=== PATIENT | female | born 1975 | race American Indian/Alaskan Native ===

== ENCOUNTER 2017-09-03 23:27 | Emergency (ER) | payer OTHER, MEDICAID ==
[2017-09-03 23:47] VITALS: BP 122/84
[2017-09-04 00:11] LABS: BUN/Creatinine Ratio 16; Blood Urea Nitrogen 11 mg/dL (7-17); Calcium 8.2 mg/dL (8.4-10.2); Hemolysis Index 2
[2017-09-04 00:13] LABS: Basophils % (Auto) 0.3 % (0.0-1.8); Eosinophils # (Auto) 0.1 K/mm3 (0.0-0.4); Eosinophils % (Auto) 1.4 % (0.0-4.3); Hematocrit 36.4 % (30.3-42.9); Hemoglobin 12.2 gm/dl (10.1-14.3); Lymphocytes % (Auto) 50.8 % (13.4-35.0); Mean Corpuscular HGB Conc 34 % (30-34); Mean Corpuscular Hemoglobin 32 pg (28-32); Mean Corpuscular Volume 95 fl (79-97); Monocytes # (Auto) 0.5 K/mm3 (0.0-0.8); Monocytes % (Auto) 6.8 % (0.0-7.3); Platelet Count 253 K/mm3 (140-440); Red Blood Count 3.84 M/mm3 (3.65-5.03); Red Cell Distribution Width 14.1 % (13.2-15.2)
[2017-09-04] MEDS ORDERED: MOTRIN PO ONE (00:52)
--- NOTE | 2017-09-04 00:55 | Emergency Department Report ---
HPI - General Chief Complaint: Burn/Smoke Inhalation Time Seen by Provider: 09/04/17 00:50 - HPI HPI: 42-year-old -[place] female with a past medical history of chronic back pain comes to the emergency room reporting she was possible carbon monoxide exposure. Patient minutes to a headache. She reports that another family member is positive for CO2 poisoning in the main ER. Patient reports that her headache is throbbing located on the temples. She has not had any pain medication at this time. She denies any chest pain shortness of breathing and no nausea no vomiting abdominal pain altered mental status able to ambulate without difficulty no sore throat. Patient has no known drug allergies. Currently takes Aleve for her chronic back pain which her last dose was yesterday. ED Past Medical Hx - Past Medical History Previous Medical History?: Yes Additional medical history: anemia; endometriosis - Surgical History Additional Surgical History: , Tubal Ligation - Social History Smoking Status: Never Smoker Substance Use Type: None - Medications Home Medications: Home Medications Medication Instructions Recorded Confirmed Last Taken Type Cyclobenzaprine [Flexeril 10mg] 10 mg PO TID PRN #14 tablet 12/28/13 Unknown Rx traMADol [Ultram] 50 mg PO Q4HR PRN #14 tablet 12/28/13 Unknown Rx Acetaminophen/Codeine 1 tab PO Q6H PRN #10 tab 05/27/14 Unknown Rx [Acetaminophen-Codeine #3 TAB] Cyclobenzaprine [Flexeril 10mg] 10 mg PO TID PRN #14 tablet 05/27/14 Unknown Rx Prednisone [Prednisone 10 mg 10 mg PO .TAPER #1 tab.ds.pk 05/27/14 Unknown Rx (6-Day Pack, 21 Tabs)] Ibuprofen [Motrin 800 MG tab] 800 mg PO Q8H PRN #15 tablet 09/04/17 Unknown Rx ED Review of Systems ROS: Stated complaint: SMOKE INHALATION Other details as noted in HPI Constitutional: denies: chills, fever Eyes: denies: eye pain, eye discharge, vision change ENT: denies: ear pain, throat pain Respiratory: denies: cough, shortness of breath, wheezing Cardiovascular: denies: chest pain, palpitations Endocrine: no symptoms reported Gastrointestinal: denies: abdominal pain, nausea, diarrhea Genitourinary: denies: urgency, dysuria, discharge Musculoskeletal: denies: back pain, joint swelling, arthralgia Skin: denies: rash, lesions Neurological: headache Psychiatric: denies: anxiety, depression Hematological/Lymphatic: denies: easy bleeding, easy bruising Physical Exam - Physical Exam Vital Signs: Vital Signs 09/03/17 09/03/17 23:27 23:39 Temperature 98.4 F 98.4 F Pulse Rate 74 71 Respiratory 18 18 Rate Blood Pressure 122/84 122/84 O2 Sat by Pulse 100 100 Oximetry Physical Exam: GENERAL: Alert and oriented x3, no apparent distress, Normal Gait, atraumatic. HEAD: Head is normocephalic and a-traumatic. EYES: Extra ocular muscles are intact. Pupils are equal, round, and reactive to light and accommodation. MOUTH:Mouth is well hydrated and without lesions. Mucous membranes are moist. Posterior pharynx clear, no exudate or lesions. Patent airways. NECK: Supple. Non edematous, . LUNGS: Symetrical with respiration, No wheezing, no rales or crackles, CTAB. HEART: S1, S2 present, regular rate and rhythm without murmur, no rubs, no gallops. ABDOMEN: No organomegaly was noted,Positive bowel sounds, soft, and non- distended. . Nontender to palpation on all Quadrants, NO CVA tenderness. EXTREMITIES/MUSCULOSKELETAL: No cyanosis, clubbing, rash, lesions or edema. Full ROM bilaterally. NEUROLOGIC: No focal Deficit, Cranial nerves II through XII are grossly intact. No loss of sensation, No facial droop, PSYCHIATRIC: Mood is congruent with affect, denies suicidal or homicidal ideations. SKIN: Warm and dry, No lesions, No ulceration or induration present ED Course Vital Signs 09/03/17 09/03/17 23:27 23:39 Temperature 98.4 F 98.4 F Pulse Rate 74 71 Respiratory 18 18 Rate Blood Pressure 122/84 122/84 O2 Sat by Pulse 100 100 Oximetry ED Medical Decision Making - Lab Data Result diagrams: 09/03/17 23:50 09/03/17 23:50 - Medical Decision Making Patient has been evaluated by this provider fast track. I discussed with patient that her carboxyhemoglobin was within normal limits. Discussed the patient I will give her ibuprofen 800 mg for her head. Encouraged her to drink plenty of fluids. Discussed the patient she can follow up with her primary care provider patient verbalized understanding. Critical care attestation.: If time is entered above; I have spent that time in minutes in the direct care of this critically ill patient, excluding procedure time. ED Disposition Clinical Impression: Exposure to carbon monoxide Disposition: DC-01 TO HOME OR SELFCARE Is pt being admited?: No Does the pt Need Aspirin: No Condition: Stable Instructions: Carbon Monoxide Exposure (ED) Additional Instructions: He can take ibuprofen for pain. Please drink plenty of fluids. Follow-up with her primary care provider. Prescriptions: Ibuprofen [Motrin 800 MG tab] 800 mg PO Q8H PRN #15 tablet PRN Reason: Pain Forms: Work/School Release Form(ED)
== END 2017-09-04 00:58 | disposition home or self-care (01) ==
LOC: ED 23:27
DX: Z77.098 Contact with and (suspected) exposure to other hazardous, chiefly nonmedicinal, chemicals (principal); R51 Headache; M54.9 Dorsalgia, unspecified; G89.29 Other chronic pain; Z98.51 Tubal ligation status; Z86.2 Personal history of diseases of the blood and blood-forming organs and certain disorders involving the immune mechanism; Z91.010 Allergy to peanuts
CPT/HCPCS: 36415; 80048; 82375; 85025; 99283

== ENCOUNTER 2018-01-24 13:58 | Emergency (ER) | payer OTHER, MEDICAID ==
[2018-01-24 15:18] VITALS: BP 107/49
[2018-01-24] MEDS ORDERED: TORADOL IM ONE (17:30)
--- NOTE | 2018-01-24 17:36 | Emergency Department Report ---
ED Back Pain/Injury HPI - General Chief Complaint: Back Pain/Injury Stated Complaint: LOWER BACK PAIN Time Seen by Provider: 01/24/18 17:22 Source: patient Limitations: No Limitations - History of Present Illness Initial Comments: This is a 43-year-old female nontoxic, well nourished in appearance, no acute signs of distress presents to the ED with c/o of acute on chronic lower back pain. Patient stated that the past 2 days he was moving and developed this pain. Patient states has history of sciatica nerve pain which is similar symptoms as today. Patient states that pain radiates through to his right lower extremity. Patient denies any trauma. Denies any bladder or bowel instability. Patient denies any urinary symptoms. Denies any fever, chills, nausea, vomiting, headache, stiff neck, chest pain or shortness of breath. Patient denies any numbness or tingling. Denies any allergies. PMH of sciatica. MD Complaint: back pain -: days(s) (2) Similar Symptoms Previously: Yes Place: work Radiation: right leg Severity: mild Severity scale (0 -10): 8 Consistency: intermittent Improves With: immobilization, supine, sitting upright Worsens With: movement, walking Context: while lifting, turning/twisting Associated Symptoms: denies other symptoms. denies: confusion, weakness, chest pain, numbness, difficulty walking, cough, difficulty urinating, diaphoresis, incontinence, fever/chills, constipation, headaches, abdominal pain, loss of appetite, malaise, nausea/vomiting, rash, seizure, shortness of breath, syncope - Related Data Previous Rx's Medication Instructions Recorded Last Taken Type Cyclobenzaprine [Flexeril 10mg] 10 mg PO TID PRN #14 tablet 12/28/13 Unknown Rx traMADol [Ultram] 50 mg PO Q4HR PRN #14 tablet 12/28/13 Unknown Rx Acetaminophen/Codeine 1 tab PO Q6H PRN #10 tab 05/27/14 Unknown Rx [Acetaminophen-Codeine #3 TAB] Cyclobenzaprine [Flexeril 10mg] 10 mg PO TID PRN #14 tablet 05/27/14 Unknown Rx Prednisone [Prednisone 10 mg 10 mg PO .TAPER #1 tab.ds.pk 05/27/14 Unknown Rx (6-Day Pack, 21 Tabs)] Ibuprofen [Motrin 800 MG tab] 800 mg PO Q8H PRN #15 tablet 09/04/17 Unknown Rx Cyclobenzaprine [Flexeril] 10 mg PO QHS PRN #10 tablet 01/24/18 Unknown Rx Ibuprofen [Motrin] 600 mg PO Q8H PRN #30 tablet 01/24/18 Unknown Rx Allergies Allergy/AdvReac Type Severity Reaction Status Date / Time peanut Allergy Unknown Verified 12/28/13 08:18 ED Review of Systems ROS: Stated complaint: LOWER BACK PAIN Other details as noted in HPI Constitutional: denies: chills, fever Eyes: denies: eye pain, eye discharge, vision change ENT: denies: ear pain, throat pain Respiratory: denies: cough, shortness of breath, wheezing Cardiovascular: denies: chest pain, palpitations Endocrine: no symptoms reported Gastrointestinal: denies: abdominal pain, nausea, diarrhea Genitourinary: denies: urgency, dysuria, discharge Musculoskeletal: back pain. denies: joint swelling, arthralgia Skin: denies: rash, lesions Neurological: denies: headache, weakness, paresthesias Psychiatric: denies: anxiety, depression Hematological/Lymphatic: denies: easy bleeding, easy bruising ED Past Medical Hx - Past Medical History Previous Medical History?: Yes Additional medical history: anemia; endometriosis, sciatica - Surgical History Past Surgical History?: Yes Additional Surgical History: , Tubal Ligation - Social History Smoking Status: Current Every Day Smoker Substance Use Type: None - Medications Home Medications: Home Medications Medication Instructions Recorded Confirmed Last Taken Type Cyclobenzaprine [Flexeril 10mg] 10 mg PO TID PRN #14 tablet 12/28/13 Unknown Rx traMADol [Ultram] 50 mg PO Q4HR PRN #14 tablet 12/28/13 Unknown Rx Acetaminophen/Codeine 1 tab PO Q6H PRN #10 tab 05/27/14 Unknown Rx [Acetaminophen-Codeine #3 TAB] Cyclobenzaprine [Flexeril 10mg] 10 mg PO TID PRN #14 tablet 05/27/14 Unknown Rx Prednisone [Prednisone 10 mg 10 mg PO .TAPER #1 tab.ds.pk 05/27/14 Unknown Rx (6-Day Pack, 21 Tabs)] Ibuprofen [Motrin 800 MG tab] 800 mg PO Q8H PRN #15 tablet 03/19/18 Unknown Rx Cyclobenzaprine [Flexeril] 10 mg PO QHS PRN #10 tablet 01/24/18 Unknown Rx Ibuprofen [Motrin] 600 mg PO Q8H PRN #30 tablet 01/24/18 Unknown Rx ED Physical Exam - General Limitations: No Limitations General appearance: alert, in no apparent distress - Head Head exam: Present: atraumatic, normocephalic - Eye Eye exam: Present: normal appearance Pupils: Present: normal accommodation - ENT ENT exam: Present: normal exam, mucous membranes moist - Neck Neck exam: Present: normal inspection, full ROM. Absent: tenderness, meningismus, lymphadenopathy - Respiratory Respiratory exam: Present: normal lung sounds bilaterally. Absent: respiratory distress, wheezes, rales, rhonchi, stridor, chest wall tenderness, accessory muscle use, decreased breath sounds, prolonged expiratory - Cardiovascular Cardiovascular Exam: Present: regular rate, normal rhythm, normal heart sounds. Absent: bradycardia, tachycardia, irregular rhythm, systolic murmur, diastolic murmur, rubs, gallop - GI/Abdominal GI/Abdominal exam: Present: soft, normal bowel sounds. Absent: distended, tenderness, guarding, rebound, rigid, diminished bowel sounds - Extremities Exam Extremities exam: Present: normal inspection, full ROM, normal capillary refill. Absent: tenderness - Back Exam Back exam: Present: normal inspection, full ROM, paraspinal tenderness (lumbar paraspinal). Absent: tenderness, CVA tenderness (R), CVA tenderness (L), muscle spasm, vertebral tenderness, rash noted - Expanded Back Exam Expanded Back exam: Absent: saddle anesthesia Back exam: Negative Straight Leg Raising: Left, Right - Neurological Exam Neurological exam: Present: alert, oriented X3, normal gait - Psychiatric Psychiatric exam: Present: normal affect, normal mood - Skin Skin exam: Present: warm, dry, intact, normal color. Absent: rash ED Course Vital Signs 01/24/18 15:14 Temperature 98.1 F Pulse Rate 66 Respiratory 18 Rate Blood Pressure 107/49 O2 Sat by Pulse 100 Oximetry - Reevaluation(s) Reevaluation #1: 01/24/18 17:41 Patient is speaking in full sentences with no signs of distress noted. ED Medical Decision Making - Medical Decision Making This is a 43-year-old female that presents with low back strain. Patient is stable was examined by me. There is no spinal tenderness. There is no cauda equina syndrome during examination. No bladder or bowel instability. Patient received Toradol 30 mg IM in the ED which preceded his symptoms has resolved and subsided. Patient is discharged with muscle relaxant and Motrin. Patient was instructed not to operate any machinery while taking muscle relaxant as they cause her drowsiness. Patient was referred to Follow-up with a primary care doctor in 3-5 days or if symptoms worsen and continue return to emergency room as soon as possible. At time of discharge, the patient does not seem toxic or ill in appearance. No acute signs of distress noted. Patient agrees to discharge treatment plan of care. No further questions noted by the patient. This chart is dictated with using [employer] Dictation Program Critical care attestation.: If time is entered above; I have spent that time in minutes in the direct care of this critically ill patient, excluding procedure time. ED Disposition Clinical Impression: Low back strain Qualifiers: Encounter type: initial encounter Qualified Code(s): S39.012A - Strain of muscle, fascia and tendon of lower back, initial encounter Sciatica Qualifiers: Laterality: right Qualified Code(s): M54.31 - Sciatica, right side Disposition: DC- TO HOME OR SELFCARE Is pt being admited?: No Does the pt Need Aspirin: No Condition: Stable Instructions: Low Back Strain (ED), Sciatica (ED), Cyclobenzaprine (By mouth), Ibuprofen (By mouth) Additional Instructions: Follow-up with your primary care doctor in 3-5 days or if symptoms worsen such as bladder or bowel stability, chest pain, short of breath, numbness or tingling sensation in extremities, headache, dizziness, visual changes, nausea vomiting, or abdominal pain, return back to emergency room as was possible. Take ibuprofen and Flexeril as prescribed. Do not operate heavy machinery while taking Flexeril due to sedation Prescriptions: Cyclobenzaprine [Flexeril] 10 mg PO QHS PRN #10 tablet PRN Reason: Muscle Spasm Ibuprofen [Motrin] 600 mg PO Q8H PRN #30 tablet PRN Reason: Pain Referrals: PRIMARY CAREMD [Primary Care Provider] - 3-5 Days SURESH WHALEY MD [Staff Physician] - 3-5 Days [facility] [Outside] - 3-5 Days [facility] [Outside] - 3-5 Days Forms: Work/School Release Form(ED)
== END 2018-01-24 17:55 | disposition home or self-care (01) ==
LOC: ED 13:58
DX: S39.012A Strain of muscle, fascia and tendon of lower back, initial encounter (principal); F17.200 Nicotine dependence, unspecified, uncomplicated; Z98.51 Tubal ligation status; Z91.010 Allergy to peanuts; Z86.2 Personal history of diseases of the blood and blood-forming organs and certain disorders involving the immune mechanism; X50.0XXA Overexertion from strenuous movement or load, initial encounter; Y93.89 Activity, other specified; Y92.89 Other specified places as the place of occurrence of the external cause; Y99.8 Other external cause status
CPT/HCPCS: 96372; 99282; J1885

== ENCOUNTER 2018-11-20 12:11 | Observation (INO) | payer BC, SELFPAY ==
[2018-11-15 10:42] LABS: Basophils % (Auto) 0.4 % (0.0-1.8); Eosinophils # (Auto) 0.1 K/mm3 (0.0-0.4); Eosinophils % (Auto) 1.5 % (0.0-4.3); Hematocrit 34.8 % (30.3-42.9); Hemoglobin 12.2 gm/dl (10.1-14.3); Lymphocytes % (Auto) 53.7 % (13.4-35.0); Mean Corpuscular HGB Conc 35 % (30-34); Mean Corpuscular Volume 92 fl (79-97); Monocytes # (Auto) 0.5 K/mm3 (0.0-0.8); Monocytes % (Auto) 7.2 % (0.0-7.3); Platelet Count 226 K/mm3 (140-440); Red Blood Count 3.78 M/mm3 (3.65-5.03); Red Cell Distribution Width 14.3 % (13.2-15.2)
--- NOTE | 2018-11-15 12:01 | Anesthesia Consultation ---
Anesthesia Consult and Med Hx Date of service: 11/15/18 - Airway Anesthetic Teeth Evaluation: Poor ROM Head & Neck: Adequate Mental/Hyoid Distance: Adequate Mallampati Class: Class II Intubation Access Assessment: Probably Good - Pulmonary Exam CTA: Yes - Cardiac Exam Cardiac Exam: RRR - Pre-Operative Health Status ASA Pre-Surgery Classification: ASA2 Proposed Anesthetic Plan: General Nerve Block: TAP Block - Pulmonary Hx Smoking: Yes (2-3 cigs/day) Hx Respiratory Symptoms: No Hx Sleep Apnea: No - Cardiovascular System Hx Hypertension: No Hx Heart Attack/AMI: No Hx Cardia Arrhythmia: No - Central Nervous System Hx Seizures: No CVA: No - Gastrointestinal Hx Gastroesophageal Reflux Disease: No - Endocrine Hx Renal Disease: No Hx Liver Disease: No Hx Insulin Dependent Diabetes: No Hx Non-Insulin Dependent Diabetes: No Hx Thyroid Disease: No - Hematic Hx Anemia: No - Other Systems Hx Substance Use: Yes (Marijuana-pt states has not used in over 30 days) Hx Cancer: No - Additional Comments Anesthesia Medical History Comments: Mild PONV with prior anesthetics.
[~2018-11-20 12:11] MED LIST: LACTATED RINGERS 1,000 ML IV SCH; NEURONTIN PO NR; SUBLIMAZE IV PRN; TRANSDERM-SCOP TD NR; VERSED IV NR
[2018-11-20] MEDS ORDERED: ANCEF/STERILE WATER 2 GM/20 ML 2 GM/20 ML SYRINGE IV NR (13:00)
--- NOTE | 2018-11-20 13:05 | History and Physical Report ---
History of Present Illness Date of examination: 11/20/18 Chief complaint: Pelvic pain History of present illness: Patient is a 43-year-old black female LMP 10/29/2018 who presents for surg ical evaluation and treatment of pelvic pain due to severe endometriosis. Pelvic ultrasound showed the uterus to be normal measuring 8.7 x 5.0 x 6.7 cm, and endometrial biopsy was benign. She is therefore scheduled for a robotic- assisted total hysterectomy with ovarian conservation. Past History Past Medical History: no pertinent history Past Surgical History: RN L AND D/uterine surgery (BTL), section Family/Genetic History: none Social history: no significant social history, single Medications and Allergies Allergies Allergy/AdvReac Type Severity Reaction Status Date / Time peanut Allergy Hives Verified 11/13/18 11:49 Home Medications Medication Instructions Recorded Confirmed Last Taken Type Naproxen Sodium [Aleve] 220 mg PO Q12H PRN 11/13/18 11/13/18 Unknown History Active Meds: Active Medications Celecoxib (Celebrex) 200 mg PO PREOP NR Stop: 11/20/18 23:00 Fentanyl (Sublimaze) 100 mcg IV ONCE PRN PRN Reason: sedation for nerve block Stop: 11/20/18 23:00 Gabapentin (Neurontin) 300 mg PO PREOP NR Stop: 11/20/18 23:00 Lactated Ringer's (Lactated Ringers) 1,000 mls @ 100 mls/hr IV DIRECT HALIMA Cefazolin Sodium (Ancef/Sterile Water 2 Gm/20 Ml) 2 gm in 20 mls @ 80 mls/hr IV PREOP NR; Protocol Midazolam HCl (Versed) 2 mg IV PREOP NR Stop: 11/20/18 23:00 Scopolamine (Transderm-Scop) 1 each TD PREOP NR Stop: 11/20/18 23:00 Review of Systems All systems: negative - Vital Signs Vital signs: Vital Signs Temp Pulse Resp BP Pulse Ox 97.2 F L 69 18 121/72 100 11/15/18 10:05 11/15/18 10:05 11/15/18 10:05 11/15/18 10:05 11/15/18 10:05 Temp Pulse Resp BP Pulse Ox 97.2 F L 69 18 121/72 100 11/15/18 10:05 11/15/18 10:05 11/15/18 10:05 11/15/18 10:05 11/15/18 10:05 - Physical Exam Breasts: Positive: deferred Cardiovascular: Regular rate Lungs: Positive: Clear to auscultation Abdomen: Positive: normal appearance Genitourinary (Female): Positive: normal external genitalia Uterus: Positive: normal size Extremities: Positive: normal Results Result Diagrams: 11/21/18 05:46 All other labs normal. Ultrasound: report reviewed Assessment and Plan - Patient Problems (1) Pelvic pain Onset Date: 11/20/18 Current Visit: Yes Status: Acute Plan to address problem: A: Chronic pelvic pain Endometriosis P: Admit for a Robotic Assisted Total Hysterectomy with Bilateral salpingectomy. (2) Endometriosis of myometrium Onset Date: 11/20/18 Current Visit: Yes Status: Acute
--- NOTE | 2018-11-20 14:02 | Anesthesia Day of Surgery ---
Anesthesia Day of Surgery - Day of Surgery Patient Examined: Yes Patient H&P Reviewed: Yes Patient is NPO: Yes
[2018-11-20] MEDS ORDERED: DILAUDID IV PRN (14:03)
[2018-11-20] MEDS ORDERED: ZOFRAN IV PRN (14:03)
[2018-11-20] MEDS ORDERED: MARCAINE-EPI 0.5%-1:200,000 INFILTRATI ONE (14:10)
[2018-11-20] MEDS ORDERED: XYLOCAINE 1% 20 mL ONE (14:11)
[2018-11-20] MEDS ORDERED: ZEMURON IV ONE (15:03)
[2018-11-20] MEDS ORDERED: DIPRIVAN 10 MG/ML IV ONE (15:03)
[2018-11-20] MEDS ORDERED: TORADOL ONE (15:03)
[2018-11-20] MEDS ORDERED: XYLOCAINE MPF 2% ONE (15:03)
[2018-11-20] MEDS ORDERED: ZOFRAN ONE (15:03)
[2018-11-20] MEDS ORDERED: DECADRON ONE (15:03)
[2018-11-20] MEDS ORDERED: ROBINUL ONE (15:03)
[2018-11-20] MEDS ORDERED: NEOSPORIN GU IR ONE ×2 (15:13→16:59)
[2018-11-20] MEDS ORDERED: NACL 0.9% IR ONE ×2 (17:00→17:11)
[2018-11-20] MEDS ORDERED: TYLENOL PO PRN (17:43)
[2018-11-20] MEDS ORDERED: PERCOCET 5/325 PO PRN (17:43)
[2018-11-20] MEDS ORDERED: MILK OF MAGNESIA PO PRN (17:43)
[2018-11-20] MEDS ORDERED: NARCAN 0.4 MG/1 ML IV PRN (17:43)
--- NOTE | 2018-11-20 17:55 | Operative Report ---
Operative Report Operative Report: Date of procedure: 11/20/2018 Pre-operative diagnosis: 1. Pelvic pain 2. Uterine fibroids 3. Endometrio sis Post-operative diagnosis: Same Procedure name(s): 1. Robotic-assisted total hysterectomy 2. Bilateral salpingectomy Surgeon: Maulik Tejeda MD Automatic Developer: Tea Hamilton CSA Anesthesia: AZRA Block followed by general endotracheal intubation EBL: 100 mL Findings: A 10-12 week size myomatous uterus with tubes showing evidence of previous tubal ligation bilaterally, and normal ovaries bilaterally. Procedure: After the patient's first correctly identified she was prepped and draped in the usual sterile fashion and placed in the dorsolithotomy position. The bladder was first catheterized using Philip catheter and the speculum was placed in the vagina and the anterior lip of the cervix was grasped using a single-tooth tenaculum, and the medium Vesicare cup was placed. The tenaculum and speculum was then removed from the vagina and attention was then turned to the abdomen. The skin knife was used to make a small incision approximately 5 cm above the umbilicus through which a 12 mm trocar was placed under direct visualization. After adequate amount of abdominal insufflation visualization of the pelvic organs found the uterus to be enlarged and the tubes showed evidence of previous tubal ligation bilaterally, and normal ovaries bilaterally. A right and left paramedian incision was made through which the 8 mm trochars were placed under direct visualization and a 5 mm trocar was placed in the right lower quadrant. The patient was then placed in steep Trendelenburg positioning and the robot was docked on the patient's left side. After all the robotic ports were connected and adequate functioning of the robotic arms were tested the surgeon then proceeded to the console to begin the hysterectomy. First the left round ligament was grasped, cauterized and cut, the left utero- ovarian ligaments were grasped, cauterized and cut, and the left fallopian tube also grasped, cauterized and cut along the mesosalpinx, thus freeing the left ovary from the left uterine sidewall. The same procedure was performed on the right. The right round ligament was grasped, cauterized and cut, the right utero-ovarian ligaments were grasped, cauterized and cut, and the right fal lopian tube also grasped, cauterized and cut along the mesosalpinx, thus freeing the right ovary from the right uterine sidewall. The bladder flap was taken down anteriorly and the uterine vessels were grasped, cauterized and cut bilaterally. The cardinal ligaments were sequentially grasped, cauterized and cut down to the level of the uterosacral ligaments. At this time the posterior colpotomy was performed over the Vcare cup, and the cervix was circumscribed beginning posteriorly and meeting anteriorly until the cervix was freed. The cervix and uterus was then removed through the vagina and sent to pathology. The vaginal cuff was then closed using 2-0 Vloc suture in a running fashion. Irrigation was then performed and after good hemostasis was achieved the procedure was considered complete. The Tisseel sealant was then sprayed across the vaginal cuff site, and after excellent hemostasis was assured Interceed was placed across the vaginal cuff site. The intra-abdominal pressure was dropped to 8 mmHg and excellent hemostasis was assured. All instruments were then removed from the abdominal cavity. And each incision was closed using 0 Vicryl suture in a [id number] configuration on the fascia followed by 4-0 Monocryl suture in a sub-cuticular fashion on the skin. Each incision was also infiltrated using 0.5% Marcaine solution. The vaginal pack was removed. The pa tee tolerated the procedure well and was transported to the recovery room in stable condition.
[2018-11-20] MEDS ORDERED: ANCEF/NS 1 GM/50 ML 1 GM/50 ML BAG IV SCH (18:00)
[2018-11-20] MEDS ORDERED: D5LR 1,000 ML IV SCH (18:00)
--- NOTE | 2018-11-20 18:58 | Post Anesthesia Evaluation ---
- Post Anesthesia Evaluation Patient Participated: Yes Airway Patent: Yes Stable Respiratory Function: Yes Nausea/Vomiting: No Temp > 96.8F: Yes Pain Manageable: Yes Adequeate Hydration: Yes Anesthesia Complications: No Block Receding Appropriately: Yes Patient on Ventilator: No
[2018-11-20] MEDS ORDERED: DEMEROL ONE (19:01)
[2018-11-20] MEDS: NORCO 5/325 PO PRN (20:24)
[2018-11-20] MEDS: TORADOL IV SCH (23:56)
[2018-11-21] MEDS: NORCO 5/325 PO PRN ×2 (03:07→10:22)
[2018-11-21 06:20] LABS: Hematocrit 34.2 % (30.3-42.9); Hemoglobin 11.8 gm/dl (10.1-14.3)
[2018-11-21] MEDS: TORADOL IV SCH ×2 (06:24→12:04)
[2018-11-21 09:49] VITALS: BP 130/76
--- NOTE | 2018-11-21 10:35 | Progress Note ---
Assessment and Plan - Patient Problems (1) Pelvic pain Onset Date: 11/20/18 Current Visit: Yes Status: Resolved (2) Endometriosis of myometrium Onset Date: 11/20/18 Current Visit: Yes Status: Resolved (3) Status post robot-assisted surgical procedure Onset Date: 11/21/18 Current Visit: Yes Status: Resolved Plan to address problem: A: S/P RATH - POD #1 Doing well P: May go home today. Subjective - Subjective Date of service: 11/21/18 Principal diagnosis: s/p RATH - POD #1 Interval history: Patient is feeling well except complaints of abdominal pains. Patient reports: appetite normal, voiding normally, dizzy ambulation, pain well controlled, flatus, ambulating normally, no nauseated Objective - Vital Signs Latest vital signs: Vital Signs Temp Pulse Resp BP BP Pulse Ox 11/21/18 08:54 98.6 F 54 L 18 130/76 100 11/21/18 03:45 97.7 F 71 16 142/80 99 11/21/18 00:02 98.4 F 64 18 100 11/21/18 00:01 66 100 11/21/18 00:00 98.4 F 65 18 135/81 100 11/20/18 22:00 20 11/20/18 20:08 97.9 F 20 153/96 11/20/18 18:45 53 L 20 159/94 100 11/20/18 18:15 61 21 84/46 100 11/20/18 18:10 73 15 139/88 100 11/20/18 18:05 78 20 149/91 100 11/20/18 18:01 97.9 F 85 16 146/87 100 11/20/18 14:55 16 112/58 99 11/20/18 14:50 63 11 L 109/61 100 11/20/18 14:43 66 9 L 114/63 100 11/20/18 14:38 64 10 L 107/65 100 11/20/18 14:34 18 11/20/18 14:10 98.6 F 60 20 115/66 100 11/20/18 13:50 98.6 F 60 18 115/66 100 Intake and Output 11/20/18 11/21/18 11/21/18 22:59 06:59 14:59 Intake Total 0 Output Total 600 1900 Balance -600 -1900 Intake: IV 0 Output: Urine 600 1900 Indwelling Catheter 1900 Other: Total, Output Amount 500 Voiding Method Indwelling Catheter - Exam Breasts: Present: deferred Cardiovascular: Present: Regular rate Lungs: Present: Clear to auscultation Abdomen: Present: normal appearance, soft Extremities: Present: normal Incision: Present: normal, dry, intact - Labs Labs: Laboratory Tests 11/15/18 11/15/18 11/20/18 10:15 10:15 10:30 WBC 7.5 RBC 3.78 Hgb 12.2 Hct 34.8 MCV 92 MCH 32 MCHC 35 H RDW 14.3 Plt Count 226 Lymph % (Auto) 53.7 H [place] % (Auto) 7.2 Eos % (Auto) 1.5 Baso % (Auto) 0.4 Lymph # 4.0 [place] # 0.5 Eos # 0.1 Baso # 0.0 Seg Neutrophils % 37.2 L Seg Neutrophils # 2.8 HCG, Qual Negative Blood Type A POSITIVE Antibody Screen TNR ZARINA Antibody Screen Negative 11/21/18 05:46 WBC RBC Hgb 11.8 Hct 34.2 MCV MCH MCHC RDW Plt Count Lymph % (Auto) [place] % (Auto) Eos % (Auto) Baso % (Auto) Lymph # [place] # Eos # Baso # Seg Neutrophils % Seg Neutrophils # HCG, Qual Blood Type Antibody Screen ZARINA Antibody Screen
[2018-11-21] MEDS ORDERED: MYLICON PO PRN (11:14)
--- NOTE | 2018-11-21 13:12 | Discharge Summary ---
Providers - Providers Date of Admission: 11/20/18 17:43 Date of discharge: 11/21/18 Attending physician: ROSE HERNANDEZ [facility] Reason for admission: other (Pelvic pain; Endometriosis) Procedure: other (Robotic Assisted Total Hysterectomy with Bilateral salpingectomy) Episiotomy: none Laceration: none Incision: normal, dry, intact Other procedures: none complications: none Discharge diagnosis: other (s/p RATH with Bilateral salpingectomy) Hospital course: Patient is a 43-year-old black female LMP 10/29/2018 who presented for surgical evaluation and treatment of pelvic pain due to severe endometriosis. Pelvic ultrasound showed the uterus to be normal measuring 8.7 x 5.0 x 6.7 cm, and endometrial biopsy was benign. She underwent an uncomplicated robotic- assisted total hysterectomy with bilateral salpingectomy. By POD #1 she was tolerating a reg diet without nausea or vomiting, ambulating and voiding without difficulty. She was therefore discharged to home on POD #1 in stable condition. Condition at discharge: Good Disposition: DC-[id number] TO HOME OR SELFCARE - Discharge Diagnoses (1) Pelvic pain Status: Resolved (2) Endometriosis of myometrium Status: Resolved (3) Status post robot-assisted surgical procedure Status: Resolved Plan - Discharge Medications Prescriptions: Ibuprofen [Motrin] 800 mg PO Q8HR PRN #30 tablet PRN Reason: Pain, Mild (1-3) HYDROcodone/APAP 5-325 [Vilonia 5-325 mg TAB] 1 each PO Q6HR PRN #30 tablet PRN Reason: Pain, Moderate (4-6) - Provider Discharge Summary Activity: routine, no sex for 6 weeks, no heavy lifting 4 weeks, no strenuous exercise Diet: routine Instructions: routine Additional instructions: [] Smoking cessation referral if applicable(refer to patient education folder for contact #) [] Refer to [facility] Booklet Call your doctor immediately for: * Fever > 100.5 * Heavy vaginal bleeding ( >1 pad per hour) * Severe persistent headache * Shortness of breath * Reddened, hot, painful area to leg or breast * Drainage or odor from incision. * Keep incision clean and dry at all times and follow doctor's instructions regarding bathing/showering - Follow up plan Follow up: ANETA MORAN MD [Primary Care Provider] - 7 Days ROSE HERNANDEZ MD [Staff Physician] - 14 Days
== END 2018-11-21 14:49 | disposition home or self-care (01) ==
LOC: OR 12:11 → OB 17:43
PROVIDERS: ADMIT Obstetrics & Gynecology; ATTEND Obstetrics & Gynecology
DX: D25.9 Leiomyoma of uterus, unspecified (principal); R10.2 Pelvic and perineal pain; Z98.890 Other specified postprocedural states; N80.0 Endometriosis of uterus
CPT/HCPCS: 36415; 58552; 64450; 81025; 84703; 85014; 85018; 85025; 86850; 86900; 86901; 88307; 96365; 96375; 96376; A4217; C1765; C9250; G0378; J0690; J1100; J1170; J1885; J2175; J2250; J2405; J2704; J3010; J7120; J7121; S2900

== ENCOUNTER 2019-01-07 09:27 | Emergency (ER) | payer BC, SELFPAY ==
[2019-01-07 09:39] VITALS: BP 110/64
[2019-01-07] MEDS ORDERED: TORADOL IM ONE (11:07)
--- NOTE | 2019-01-07 11:12 | Emergency Department Report ---
ED Back Pain/Injury HPI - General Chief Complaint: Back Pain/Injury Stated Complaint: BACK PAIN Time Seen by Provider: 01/07/19 10:05 Source: patient Limitations: No Limitations - History of Present Illness Initial Comments: This is a 43-year-old -[place] female who presents to the emergency room with lower back pain radiating to right lower extremity for 2 days. Past medical history of sciatica, endometriosis, and anemia. Patient states she saw her primary care doctor at [facility] 4 days ago and was started on Flexeril with no improvement of symptoms. She reports pain to the right lower extremity is worse with movement or bending. She reports pain at the tingling intensity that is currently 10 out of 10 on pain scale. She denies fever, urinary frequency, urgency, dysuria. MD Complaint: back pain Onset/Timin -: days(s) Similar Symptoms Previously: Yes Place: home Radiation: right leg Severity: severe Severity scale (0 -10): 10 Quality: sharp, aching Consistency: intermittent Improves With: none Worsens With: movement Context: while lifting, turning/twisting, bending Associated Symptoms: denies: numbness, difficulty urinating, incontinence, fever/chills Treatments Prior to Arrival: NSAIDS - Related Data Home Medications Medication Instructions Recorded Confirmed Last Taken Naproxen Sodium [Aleve] 220 mg PO Q12H PRN 11/13/18 11/13/18 Unknown Previous Rx's Medication Instructions Recorded Last Taken Type HYDROcodone/APAP 5-325 [Corrigan 1 each PO Q6HR PRN #30 tablet 11/21/18 Unknown Rx 5-325 mg TAB] Ibuprofen [Motrin] 800 mg PO Q8HR PRN #30 tablet 11/21/18 Unknown Rx Ibuprofen [Motrin 800 MG tab] 800 mg PO Q8HR PRN #30 tablet 01/07/19 Unknown Rx Methocarbamol [Robaxin] 500 mg PO BID PRN #20 tablet 01/07/19 Unknown Rx methylPREDNISolone [Medrol 4MG 4 mg PO DAILY #1 tab.ds.pk 01/07/19 Unknown Rx DOSEPAK (21 tabs)] Allergies Allergy/AdvReac Type Severity Reaction Status Date / Time peanut Allergy Hives Verified 11/13/18 11:49 ED Review of Systems ROS: Stated complaint: BACK PAIN Other details as noted in HPI Constitutional: denies: chills, fever Respiratory: denies: cough, shortness of breath, wheezing Cardiovascular: denies: chest pain, palpitations Gastrointestinal: denies: abdominal pain, nausea, diarrhea Musculoskeletal: back pain. denies: joint swelling, arthralgia Skin: denies: rash, lesions Neurological: denies: headache, weakness, paresthesias Psychiatric: denies: anxiety, depression ED Past Medical Hx - Past Medical History anemia; endometriosis, sciatica Family history: no significant family history ED Back Pain Physical Exam - Exam General: Vital signs noted. No distress. Alert and acting appropriately. Back/Abdomen: Yes Sacroiliac Tenderness, Yes Straight Leg Raise Pain (right lower extremity), No Abdominal Tenderness, No Perithoracic Tenderness, No Perilumbar Tenderness, No Flank Tenderness Neuro: Yes Normal Sensation, Yes Normal DTR's, Yes Normal Gait, No Motor Weakness ED Course Vital Signs 01/07/19 09:35 Temperature 98 F Pulse Rate 73 Respiratory 17 Rate Blood Pressure 110/64 O2 Sat by Pulse 100 Oximetry ED Medical Decision Making - Medical Decision Making Patient was examined by me. Vitals are normal and patient is in no acute distress. Past medical history of sciatica, anemia, and endometriosis. Given Toradol IM while in the ER. Patient will be treated for sciatica with muscle relaxers, muscle relaxers, and steroids. Plan discussed with patient to discharge home and treat outpatient. She agrees with ER plan. Patient discharged home in stable condition. Follow up with PCP in 2-3 days. Critical care attestation.: If time is entered above; I have spent that time in minutes in the direct care of this critically ill patient, excluding procedure time. ED Disposition Clinical Impression: Sciatica of right side Low back pain Qualifiers: Chronicity: acute Back pain laterality: right Sciatica presence: with sciatica Sciatica laterality: sciatica of right side Qualified Code(s): M54.41 - Lumbago with sciatica, right side Disposition: TO HOME OR SELFCARE Is pt being admited?: No Does the pt Need Aspirin: No Condition: Stable Instructions: Sciatica (ED) Additional Instructions: Rest Use ice or heat on affected area for 20 minutes and off for 2 hours. Take pain medication as needed for pain. Don't drive or operate heavy machinery while taking muscle relaxers because they may cause drowsiness. Follow up with Primary Care Provider in 2-3 days. Prescriptions: methylPREDNISolone [Medrol 4MG DOSEPAK (21 tabs)] 4 mg PO DAILY #1 tab.ds.pk Ibuprofen [Motrin 800 MG tab] 800 mg PO Q8HR PRN #30 tablet PRN Reason: pain Methocarbamol [Robaxin] 500 mg PO BID PRN #20 tablet PRN Reason: Muscle Spasm Referrals: RUBIO RAHMAN MD [Primary Care Provider] - 3-5 Days YASMEEN HERNANDEZ MD [Referring] - 3-5 Days [facility] [Outside] - 3-5 Days Forms: Work/School Release Form(ED) Time of Disposition: 11:15
== END 2019-01-07 11:28 | disposition home or self-care (01) ==
LOC: ED 09:27
DX: M54.41 Lumbago with sciatica, right side (principal); Z91.010 Allergy to peanuts
CPT/HCPCS: 96372; 99282; J1885

== ENCOUNTER 2019-04-14 11:37 | Emergency (ER) | payer BC ==
[2019-04-14 11:42] VITALS: BP 106/72
--- NOTE | 2019-04-14 12:07 | Event Note ---
ED Screening Note ED Screening Note: chronic lower back pain and leg pain for several months hx of sciatica has not follow up with an orthopedic doctor no PCP no bowel or bladder incontinence no fall or injury
--- NOTE | 2019-04-14 12:14 | Emergency Department Report ---
Chief Complaint: Back Pain/Injury Stated Complaint: LEG/BACK PAIN/DIFFICULTY WALKING Time Seen by Provider: 04/14/19 12:06 - HPI History of Present Illness: pt is a 44 yo female who presents with chronic lower back pain and right leg pain for "several months" per patient hx of sciatica has not follow up with an orthopedic doctor no PCP no bowel or bladder incontinence no fall or injury no fever no saddle numbness no weakness she was evaluated in the ED in december 2018 for the same complaint pt is ambulatory in the ED without difficulty no red flag signs of low back pain, no trauma, no unexplained weight loss, no neurologic symptoms, age is not greater than 50, no fever, no IVDU, no steroid use, no history of cancer vitals are normal pt has a non medical emergency at this time chronic sciatica it is best for pt to follow up with an provisioning specialist given this has been ongoing for several months, pt could benefit from physical therapy or injections from the specialist advised pt to please take tylenol or ibuprofen for discomfort. do the stretches for sciatica given to you on the handout. use ice packs, heating pads, rest, epsom salt bath. follow up with a primary care doctor and orthopedic doctor. return to the emergency room for any new or worsening symptoms. pt given sciatica stretching handout and community resources clinic list - Exam Vital Signs: Vital Signs 04/14/19 11:39 Temperature 98 F Pulse Rate 75 Respiratory 18 Rate Blood Pressure 106/72 O2 Sat by Pulse 100 Oximetry MSE screening note: Focused history and physical exam performed. ED Disposition for MSE Clinical Impression: Chronic back pain Qualifiers: Back pain location: low back pain Back pain laterality: left Sciatica presence: with sciatica Sciatica laterality: sciatica of left side Qualified Code(s): M54.42 - Lumbago with sciatica, left side Sciatica Qualifiers: Laterality: left Qualified Code(s): M54.32 - Sciatica, left side Disposition: Z-07 MED SCREENING EXAM-LEFT Is pt being admited?: No Does the pt Need Aspirin: No Condition: Stable Instructions: Sciatica (ED) Additional Instructions: please take tylenol or ibuprofen for discomfort. do the stretches for sciatica given to you on the handout. use ice packs, heating pads, rest, epsom salt bath. follow up with a primary care doctor and orthopedic doctor. return to the emergency room for any new or worsening symptoms. Referrals: [facility] [Provider Group] - 2-3 Days [facility] [Provider Group] - 2-3 Days [facility] [Outside] - 2-3 Days [facility] [Outside] - 2-3 Days Time of Disposition: 12:12 Print Language: HUNGARIAN
== END 2019-04-14 12:35 | disposition left against medical advice (07) ==
LOC: ED 11:37
DX: M54.42 Lumbago with sciatica, left side (principal); G89.29 Other chronic pain; Z91.010 Allergy to peanuts
CPT/HCPCS: 99282